=== PATIENT | male | born 1985 | race Caucasian/White ===

== ENCOUNTER 2018-09-11 19:13 | Emergency (ER) | payer OTHER ==
[~2018-09-11] VITALS: Ht 188 cm; Wt 82.5 kg
[~2018-09-11 19:13] MED LIST: ALBU90OI INH; ALPR.5 PO; AMOCLA500 PO; AMOX1XR PO; ARIP10 PO; ARIP20 PO; Amoxicillin500 MG PO; BENZ100A PO; CEPH500 PO; CITA20 PO; CODGUAEL PO; CYCL10 PO; DOXY100 PO; FLUT.05NI; HYDACE5 PO; IBUP800 PO; LEVO750 PO; METPRE4DP PO; NORT10 PO; Naprosyn500 MG PO; Norco 5-325 Ta1 EACH PO; OXYACE5T PO; Percocet 5-3251 EACH PO; Prednisone20 MG PO; SERT100 PO; SPACE CHAMBER1 EACH MC; SULTRIDS PO; Sudogest30 MG PO; Tegretol200 MG PO; Valium5 MG PO; ZOLP5 PO; Zithromax250 MG PO
[2018-09-11 20:21] LABS: BASOPHILS ABSOLUTE AUTO 0.09 K/mm3 (0.00-0.23); BASOPHILS PERCENT AUTO 1 % (0-2); EOSINOPHILS ABSOLUTE AUTO 0.34 K/mm3 (0.00-0.68); EOSINOPHILS PERCENT AUTO 3 % (0-6); Hematocrit 47.9 % (37.0-53.0); Hemoglobin 16.2 g/dL (13.5-17.5); IMMATURE GRAN ABSOLUTE AUTO 0.03 K/mm3 (0.00-0.10); IMMATURE GRAN PERCENT AUTO 0 % (0-1); LYMPHOCYTES ABSOLUTE AUTO 2.74 K/mm3 (0.84-5.20); LYMPHOCYTES PERCENT AUTO 27 % (21-46); MONOCYTES ABSOLUTE AUTO 1.49 K/mm3 (0.16-1.47); MONOCYTES PERCENT AUTO 15 % (4-13); Mean Corpuscular HGB Conc 33.8 g/dL (31.5-36.5); Mean Corpuscular Volume 92 fL (80-100); Mean Platelet Volume 8.9 fL (9.1-12.4); NEUTROPHILS ABSOLUTE AUTO 5.47 K/mm3 (1.96-9.15); NEUTROPHILS PERCENT AUTO 54 % (41-73); Platelet Count 309 K/mm3 (150-400); RDW Coefficient Variation 12.7 % (11.7-14.2); RDW Standard Deviation 42.7 fL (35.1-46.3); Red Blood Cell Count 5.22 M/mm3 (4.30-5.90); White Blood Cell Count 10.16 K/mm3 (4.00-11.30)
[2018-09-11 20:34] LABS: Alanine Aminotransfer (ALT/SGP 39 U/L (12-78); Albumin, Blood 3.9 g/dL (3.4-5.0); Alk Phos 85 U/L (50-136); Anion Gap 8 mmol/L (6-16); Aspartate Aminotrans (AST/SGOT 33 U/L (12-37); Bilirubin, Total 0.8 mg/dL (0.1-1.0); Blood Urea Nitrogen 13 mg/dL (8-24); Bun/Creatinine Ratio 16.1 (12.0-20.0); CO2, Blood 25 mmol/L (21-32); Chloride, Blood 106 mmol/L (98-108); Creatinine, Blood 0.81 mg/dL (0.60-1.20); Globulin, Blood 3.8 g/dL (2.2-4.0); Glomerular Filtration Rate >60 (60-); Glucose, Blood 89 mg/dL (70-99); Potassium, Blood 3.7 mmol/L (3.5-5.5); Sodium, Blood 139 mmol/L (136-145); Total Protein, Blood 7.7 g/dL (6.4-8.2)
[2018-09-11] MEDS ORDERED: Zantac150 MG PO (20:59)
[2018-09-11] MEDS ORDERED: Zofran8 MG PO (20:59)
== END 2018-09-11 21:37 | disposition home or self-care (01) ==
LOC: ER 19:13
PROVIDERS: Emergency Medicine
DX: K29.20 Alcoholic gastritis without bleeding (principal); F31.9 Bipolar disorder, unspecified; Z90.49 Acquired absence of other specified parts of digestive tract; F17.210 Nicotine dependence, cigarettes, uncomplicated; Z79.899 Other long term (current) drug therapy
CPT/HCPCS: 36415; 80053; 83690; 85025; 96374; 96375; 99284-25; J1170; J2405

== ENCOUNTER 2019-02-18 10:00 | Emergency (ER) | payer OTHER ==
[~2019-02-18] VITALS: Ht 188 cm; Wt 79.4 kg
[~2019-02-18 10:00] MED LIST changes: +Zantac150 MG PO; +Zofran8 MG PO
[2019-02-18] MEDS ORDERED: HYDR1TAB94 PO (11:23)
[2019-02-18] MEDS ORDERED: CEPH500 PO (11:24)
[2019-02-18] MEDS ORDERED: CRUTCH2 XX (11:26)
== END 2019-02-18 11:57 | disposition home or self-care (01) ==
LOC: ER 10:00
DX: S92.352A Displaced fracture of fifth metatarsal bone, left foot, initial encounter for closed fracture (principal); F32.9 Major depressive disorder, single episode, unspecified; V89.9XXA Person injured in unspecified vehicle accident, initial encounter
CPT/HCPCS: 29515; 73630; 90471; 90714; 96372-59; 99283-25; J0690

== ENCOUNTER 2019-02-26 12:13 | Day surgery (SDC) | payer OTHER ==
[~2019-02-26] VITALS: Ht 185.4 cm; Wt 77.4 kg
[~2019-02-26 12:13] MED LIST changes: +CRUTCH2 XX; +HYDR1TAB94 PO
--- NOTE | 2019-02-26 16:54 | NUR ---
02/26/19 5712 Kunal oCmer S PATIENT SITTING UP IN RECLINER CHAIR VISITING WITH AND DRINKING JUICE. LEFT FOOT ELEVATED ON PILLOWS WITH AN ICE PACK. PATIENT DENIES PAIN, N/V AT THIS TIME. VSS
== END 2019-02-26 17:11 | disposition home or self-care (01) ==
LOC: ORSCSDS 12:13
PROVIDERS: Orthopaedic Surgery
PROC: 0QSP04Z Reposition Left Metatarsal with Internal Fixation Device, Open Approach (ICD-10-PCS; principal; 2019-02-26 13:30)
DX: S92.352A Displaced fracture of fifth metatarsal bone, left foot, initial encounter for closed fracture (principal); F17.210 Nicotine dependence, cigarettes, uncomplicated; F31.9 Bipolar disorder, unspecified
CPT/HCPCS: C1713; J0690; J1100; J1885; J2250; J2405; J2704; J3010; J7120

== ENCOUNTER → 2020-01-05 | Outpatient (CLI) | payer OTHER ==
[2020-01-05 12:46] LABS: BASOPHILS ABSOLUTE AUTO 0.11 K/mm3 (0.00-0.23); BASOPHILS PERCENT AUTO 1 % (0-2); EOSINOPHILS ABSOLUTE AUTO 0.35 K/mm3 (0.00-0.68); EOSINOPHILS PERCENT AUTO 4 % (0-6); Hematocrit 44.7 % (37.0-53.0); Hemoglobin 15.4 g/dL (13.5-17.5); IMMATURE GRAN ABSOLUTE AUTO 0.02 K/mm3 (0.00-0.10); IMMATURE GRAN PERCENT AUTO 0 % (0-1); LYMPHOCYTES ABSOLUTE AUTO 3.29 K/mm3 (0.84-5.20); LYMPHOCYTES PERCENT AUTO 35 % (21-46); MONOCYTES ABSOLUTE AUTO 0.93 K/mm3 (0.16-1.47); MONOCYTES PERCENT AUTO 10 % (4-13); Mean Corpuscular HGB 30.2 pg (26.0-34.0); Mean Corpuscular HGB Conc 34.5 g/dL (31.5-36.5); Mean Corpuscular Volume 88 fL (80-100); Mean Platelet Volume 9.1 fL (9.1-12.4); NEUTROPHILS ABSOLUTE AUTO 4.63 K/mm3 (1.96-9.15); NEUTROPHILS PERCENT AUTO 50 % (41-73); Platelet Count 333 K/mm3 (150-400); RDW Coefficient Variation 12.6 % (11.7-14.2); RDW Standard Deviation 40.8 fL (35.1-46.3); White Blood Cell Count 9.33 K/mm3 (4.00-11.30)
[2020-01-05 12:55] LABS: Alanine Aminotransfer (ALT/SGP 23 U/L (12-78); Albumin, Blood 4.1 g/dL (3.4-5.0); Alk Phos 74 U/L (40-126); Anion Gap 10 mmol/L (6-16); Aspartate Aminotrans (AST/SGOT 25 U/L (12-37); Bilirubin, Total 0.9 mg/dL (0.1-1.0); Blood Urea Nitrogen 13 mg/dL (8-24); Bun/Creatinine Ratio 13.1 (12.0-20.0); CO2, Blood 27 mmol/L (21-32); Calcium, Blood 8.9 mg/dL (8.5-10.1); Chloride, Blood 102 mmol/L (98-108); Creatinine, Blood 0.99 mg/dL (0.60-1.20); Globulin, Blood 4.1 g/dL (2.2-4.0); Glomerular Filtration Rate >60 (60-); Glucose, Blood 103 mg/dL (70-99); Sodium, Blood 139 mmol/L (136-145); Total Protein, Blood 8.2 g/dL (6.4-8.2)
== END ==
LOC: LAB EV 12:41 → LAB SHORT 12:41
PROVIDERS: Emergency Medicine
DX: R55 Syncope and collapse (principal)
CPT/HCPCS: 80053; 85025

== ENCOUNTER 2020-11-17 12:32 | Emergency (ER) | payer OTHER ==
[~2020-11-17] VITALS: Ht 188 cm; Wt 72.6 kg
[2020-11-17] MEDS ORDERED: Seroquel Xr50 MG PO (13:09)
[2021-01-05] MEDS ORDERED: Percocet 5-3251 EACH PO (23:00)
== END 2020-11-17 13:21 | disposition home or self-care (01) ==
LOC: ER 12:32
DX: F31.9 Bipolar disorder, unspecified (principal); Z76.0 Encounter for issue of repeat prescription; F43.10 Post-traumatic stress disorder, unspecified; F17.210 Nicotine dependence, cigarettes, uncomplicated; Z79.899 Other long term (current) drug therapy
CPT/HCPCS: 93005; 93010; 99283-25

== ENCOUNTER 2022-07-18 08:13 | Emergency (ER) | payer OTHER ==
[~2022-07-18] VITALS: Ht 188 cm; Wt 65.3 kg
[~2022-07-18 08:13] MED LIST changes: +Seroquel Xr50 MG PO
[2022-07-18] MEDS ORDERED: ALPR.5 PO (08:51)
== END 2022-07-18 09:04 | disposition home or self-care (01) ==
LOC: ER 08:13
DX: F41.0 Panic disorder [episodic paroxysmal anxiety] (principal); F17.210 Nicotine dependence, cigarettes, uncomplicated
CPT/HCPCS: A9270

== ENCOUNTER 2023-01-23 10:22 | Day surgery (SDC) | payer OTHER ==
[~2023-01-23] VITALS: Ht 180.3 cm; Wt 75.9 kg
[2023-01-23] MEDS ORDERED: VRAYLAR (10:40)
[2023-01-23] MEDS ORDERED: ZOLP10 (10:40)
[2023-01-23 12:42] VITALS: BP 132/85
== END 2023-01-23 12:39 | disposition home or self-care (01) ==
LOC: ORSCSDS 10:22
PROVIDERS: Student in an Organized Health Care Education/Training Program
PROC: 0DBL8ZX Excision of Transverse Colon, Via Natural or Artificial Opening Endoscopic, Diagnostic (ICD-10-PCS; principal; 2023-01-23 11:45)
PROC: 0DB78ZX Excision of Stomach, Pylorus, Via Natural or Artificial Opening Endoscopic, Diagnostic (ICD-10-PCS; principal; 2023-01-23 11:45)
PROC: 0DBP8ZX Excision of Rectum, Via Natural or Artificial Opening Endoscopic, Diagnostic (ICD-10-PCS; principal; 2023-01-23 11:45)
PROC: 0DB98ZX Excision of Duodenum, Via Natural or Artificial Opening Endoscopic, Diagnostic (ICD-10-PCS; principal; 2023-01-23 11:45)
DX: R63.4 Abnormal weight loss (principal); R15.0 Incomplete defecation; R10.9 Unspecified abdominal pain; D12.3 Benign neoplasm of transverse colon; K62.1 Rectal polyp; F31.9 Bipolar disorder, unspecified; Z79.899 Other long term (current) drug therapy
CPT/HCPCS: 88305; 88342; J2704; J7120

== ENCOUNTER 2023-03-14 06:43 | Day surgery (SDC) | payer OTHER ==
[~2023-03-14] VITALS: Ht 185.4 cm; Wt 75.5 kg
[~2023-03-14 06:43] MED LIST changes: +VRAYLAR; +ZOLP10
[2023-03-14 08:46] VITALS: BP 123/78
== END 2023-03-14 08:52 | disposition home or self-care (01) ==
LOC: ORSCSDS 06:43
PROVIDERS: Student in an Organized Health Care Education/Training Program
PROC: 0DBN8ZX Excision of Sigmoid Colon, Via Natural or Artificial Opening Endoscopic, Diagnostic (ICD-10-PCS; principal; 2023-03-14 08:00)
DX: R10.9 Unspecified abdominal pain (principal); Z86.010 Personal history of colon polyps; K63.5 Polyp of colon; K64.8 Other hemorrhoids; K58.9 Irritable bowel syndrome, unspecified; R63.4 Abnormal weight loss; F31.9 Bipolar disorder, unspecified; K59.00 Constipation, unspecified; F41.1 Generalized anxiety disorder; F43.10 Post-traumatic stress disorder, unspecified; F17.210 Nicotine dependence, cigarettes, uncomplicated; Z79.899 Other long term (current) drug therapy
CPT/HCPCS: 88305; J2704; J7120